=== PATIENT | female | born 1990 | race Caucasian/White ===

== ENCOUNTER 2018-07-10 23:43 | Emergency (ER) | payer SELFPAY ==
[~2018-07-10] VITALS: Ht 157.5 cm; Wt 133.8 kg
[2018-07-10 23:46] VITALS: BP 135/85; Ht 157.5 cm; Wt 133.8 kg
== END 2018-07-11 02:20 | disposition left against medical advice (07) ==
LOC: ED 23:43
DX: Z53.21 Procedure and treatment not carried out due to patient leaving prior to being seen by health care provider (principal)

== ENCOUNTER 2019-05-24 20:04 | Emergency (ER) | payer OTHER ==
[~2019-05-24] VITALS: Ht 165.1 cm; Wt 140.3 kg
[2019-05-24 20:43] VITALS: BP 124/72
== END 2019-05-24 20:43 | disposition home or self-care (01) ==
LOC: ED 20:04
DX: J02.9 Acute pharyngitis, unspecified (principal); Z98.890 Other specified postprocedural states; Z86.2 Personal history of diseases of the blood and blood-forming organs and certain disorders involving the immune mechanism; Z88.1 Allergy status to other antibiotic agents; Z88.5 Allergy status to narcotic agent